=== PATIENT | male | born 1990 | race Two or more races ===

== ENCOUNTER 2016-12-16 00:10 | Inpatient (IN) | payer OTHER ==
[2016-12-16] VITALS (11 sets, daily range): BP systolic 107–138; BP diastolic 53–82
[2016-12-16] MEDS ORDERED: MORPHINE SULFATE 2 MG/ML DISP.SYRIN. IV PRN ×2 (02:15→08:30)
[2016-12-16] MEDS ORDERED: ONDANSETRON PF 4 MG/2 ML VIAL. IV PRN ×3 (02:15→09:30)
[2016-12-16] MEDS: IV NORMAL SALINE 1000ML BAG 1,000 ML IV SCH ×2 (02:30→12:15)
[2016-12-16] MEDS ORDERED: no home medications (03:29)
[2016-12-16] MEDS ORDERED: fentaNYL PF VIAL 100 MCG/2 ML VIAL IV PRN ×2 (04:45→08:30)
[2016-12-16] MEDS ORDERED: PROPOFOL 20 ML IV ONE (07:25)
[2016-12-16] MEDS ORDERED: SEVOFLURANE 31 TO 60 MINUTES. IH ONE (07:25)
[2016-12-16] MEDS ORDERED: LIDOCAINE 2% 100 MG/5 ML SYRINGE. ONE (07:25)
[2016-12-16] MEDS ORDERED: DEXAMETHASONE SOD PHOS 20 MG/5 ML VIAL. ONE (07:25)
[2016-12-16] MEDS ORDERED: ONDANSETRON PF 4 MG/2 ML VIAL. ONE (07:25)
[2016-12-16] MEDS ORDERED: KETOROLAC 60 MG/2 ML INJ FOR OR. ONE (07:25)
[2016-12-16] MEDS ORDERED: fentaNYL PF VIAL 100 MCG/2 ML VIAL ONE (07:26)
[2016-12-16] MEDS ORDERED: GLYCOPYRROLATE 1 MG/5 ML VIAL. ONE (07:26)
[2016-12-16] MEDS ORDERED: NEOSTIGMINE METHYLSULFATE 5 MG/5 ML SYRINGE. ONE (07:26)
[2016-12-16] MEDS ORDERED: SUCCINYLCHOLINE 200 MG/10 ML VIAL. ONE (07:27)
[2016-12-16] MEDS ORDERED: ROCURONIUM 50 MG/5 ML VIAL. ONE (07:30)
[2016-12-16] MEDS ORDERED: BUPIVAC MPF-EPI 0.5%-1:200000 30 ML VIAL. ONE (07:33)
--- NOTE | 2016-12-16 07:51 | PDOC ---
SURGICAL PROGRESS NOTE Subjective 26 yo M with appendicitis TO OR for lap appendectomy [id number] Vital Signs Vital Signs Date Time Temp Pulse Resp B/P Pulse Ox O2 Delivery O2 Flow Rate FiO2 12/16/16 05:36 Room Air 12/16/16 01:40 97.5 70 20 138/82 97 97.5 BEE BRAMBILA MD December 16, 2016 07:51
[2016-12-16] MEDS ORDERED: IV RINGERS,LACTATED 1000ML 1,000 ML IV SCH ×3 (08:00→09:27)
[2016-12-16] MEDS: PIPERACILLIN/TAZOBACTAM 3.375 GM in IV NORMAL SALINE 50ML 50 ML IV SCH ×2 (08:10→12:31)
[2016-12-16] MEDS ORDERED: HYDROmorphone 2 MG/ML VIAL IV PRN (08:30)
[2016-12-16] MEDS ORDERED: LIDOCAINE 1% 1 ML SYRINGE. ID PRN (08:30)
[2016-12-16] MEDS ORDERED: PROCHLORPERAZINE 10 MG/2 ML VIAL. IV PRN (08:30)
[2016-12-16] MEDS: fentaNYL PF VIAL 100 MCG/2 ML VIAL IV PRN ×2 (09:06→09:26)
[2016-12-16] MEDS ORDERED: HYDROCODONE/APAP 5/325MG TABLET. PO PRN (09:30)
[2016-12-16] MEDS ORDERED: KETOROLAC TROMETHAMINE 30 MG/ML INJ. IV PRN (09:30)
[2016-12-16] MEDS ORDERED: 0.9 % SODIUM CHLORIDE 10 ML DISP.SYRIN. IV PRN (09:30)
--- NOTE | 2016-12-16 09:33 | PDOC ---
BRIEF OPERATIVE NOTE Pre-Op Diagnosis Appendicitis Post-Op Diagnosis same Procedure Performed Laparoscopic appendectomy Surgeon Pili Anesthesia Type: General, Local Blood Loss 25 IV Fluid 200 Specimens Obtained appendix Findings inflammed appendix, no perforation Complications none Additional Remarks [id number] BEE BRAMBILA MD December 16, 2016 09:33
[2016-12-16] MEDS ORDERED: DOCUSATE SODIUM 100 MG CAPSULE. PO SCH (10:00)
--- NOTE | 2016-12-16 11:37 | CONS ---
DATE OF CONSULTATION: 12/16/2016 REFERRING PHYSICIANS: Dr. Nile Navarro, Dr. Michael Liao, Dr. Davey. CHIEF COMPLAINT: Right lower quadrant abdominal pain. DIAGNOSIS: Appendicitis. PLANNED PROCEDURE: Laparoscopic versus open appendectomy. HISTORY OF PRESENT ILLNESS: This is a pleasant 26-year-old male who presents with a 3-day history of abdominal pain localized in the right lower quadrant, gradually worsened over the past few days. Last night it caused him to present to the Emergency Room and had some associated nausea and developed emesis when he got to the Emergency Room. He was seen at [facility] ER and transferred to [place] for definitive care. He is seen in the preoperative area. He actually reports feeling much better this morning, decreased pain, although still somewhat present. He denies any previous episodes of anything like this. His stools have been normal. ALLERGIES: He has no known drug allergies. MEDICATIONS: None. PAST MEDICAL HISTORY: None. PAST SURGICAL HISTORY: None. SOCIAL HISTORY: Positive for half a pack of tobacco per day. He is encouraged on smoking cessation, drinks alcohol once weekly. REVIEW OF SYSTEMS: All systems reviewed and negative except for HPI. FAMILY HISTORY: Noncontributory. PHYSICAL EXAMINATION: GENERAL: Well-developed, well-nourished male in no obvious distress. VITAL SIGNS: He is afebrile. Vital signs within normal limits. HEENT: Normocephalic, atraumatic. Pupils equal. Anicteric sclerae. Extraocular motions intact. NECK: Supple. Trachea is midline. Oropharynx clear. LUNGS: Bilateral chest excursion. No chest wall tenderness to palpation. ABDOMEN: Soft, nondistended. There is mild tenderness to palpation on the right lower quadrant, some mild guarding. EXTREMITIES: No clubbing, cyanosis or edema. LABORATORY DATA: White blood cell count is 11.7. Chemistries were unremarkable. UA is unremarkable. CT scan of his abdomen and pelvis demonstrates acute appendicitis with a dilated fluid-filled appendix, but no evidence of abscess or free air. There is a lesion in the right lobe of the liver, 2.8 cm, which is felt to be a hemangioma. IMPRESSION AND RECOMMENDATIONS: This is a 26-year-old male with acute appendicitis. We will plan on laparoscopic versus open appendectomy and the risks, benefits and alternatives are discussed with the patient. Risks including but not limited to bleeding, infection, damage to surrounding structures, risk of anesthesia, risk of an open procedure. The patient appears to understand and his insightful questions were answered and he agrees to proceed. Regarding his liver hemangioma, this should not require any additional imaging or interventions, unfortunately will not be able to be visualized secondary to its location intraoperatively. Thank you for allowing participation in the care of this pleasant patient. BEE BRAMBILA MD DR: SACHA/belen JOB#: [id number] / [id number] NILE De Anda MD, SRINIVASA MD Warrick, Brad
--- NOTE | 2016-12-16 12:03 | PDOC1 ---
History and Physical Date of Admission Date of Admission 12/15/16 Identification/Chief Complaint Chief Complaint abd pain Problems: Source Source: Chart review, Patient History of Present Illness History of Present Illness 26yo M, was transferred from [facility] for abd pain. He has having RLQ abd pain for a few days, with N/V. appedicities was suppected and transferred here. pt got lap appendectomy on 5/3 am. seen post op, feels better. Past Medical History Past Medical History none Past Surgical History Past Surgical History: No pertinent history Family History Family History: No Significant Social History Smoke: <1 pack per day ALCOHOL: social Drugs: None Current Problem List Problem List Problems Medical Problems: (1) Appendicitis Status: Acute Current Medications Current Medications Current Medications Medications (Trade) Dose Ordered Sig/Jania Start Time Stop Time Status Last Admin Dose Admin Acetaminophen/ Hydrocodone Bitart (Lortab 5/325) 1 tab PRN Q4HRS PRN 12/16/16 09:30 Bupivacaine HCl/ Epinephrine Bitart (Sensorcain-Mpf Epi 0.5%-1:226970) 30 ml STK-MED ONCE 12/16/16 07:33 12/16/16 07:34 DC 12/16/16 08:14 5 ML Dexamethasone Sodium Phosphate (Decadron) 20 mg STK-MED ONCE 12/16/16 07:25 12/16/16 07:26 DC Docusate Sodium (Colace) 100 mg BID 12/16/16 10:00 Fentanyl Citrate (Fentanyl 2ml Vial) 50 mcg PRN Q5MIN PRN 12/16/16 08:30 12/17/16 08:29 12/16/16 09:26 50 MCG Fentanyl Citrate 25 mcg 25 mcg PRN Q2HR PRN 12/16/16 04:45 12/16/16 04:46 25 MCG Glycopyrrolate (Robinul) 1 mg STK-MED ONCE 12/16/16 07:26 12/16/16 07:27 DC Hydromorphone HCl (Dilaudid) 0.5 mg PRN Q10MIN PRN 12/16/16 08:30 12/17/16 08:29 Ketorolac Tromethamine (Toradol For Or Only) 60 mg STK-MED ONCE 12/16/16 07:25 12/16/16 07:26 DC Ketorolac Tromethamine (Toradol) 30 mg PRN Q6HRS PRN 12/16/16 09:30 12/21/16 09:29 Lidocaine HCl 2 ml PRN 1X PRN 12/16/16 08:30 12/17/16 08:29 Lidocaine HCl (Lidocaine HCl 2% Abboject) 100 mg STK-MED ONCE 12/16/16 07:25 12/16/16 07:26 DC Morphine Sulfate 1 mg PRN Q10MIN PRN 12/16/16 08:30 12/17/16 08:29 Morphine Sulfate 2 mg 2 mg PRN Q2HR PRN 12/16/16 02:15 12/16/16 04:37 DC 12/16/16 03:19 2 MG Neostigmine Methylsulfate 5 mg STK-MED ONCE 12/16/16 07:26 12/16/16 07:27 DC Ondansetron HCl (Zofran) 4 mg PRN Q6HRS PRN 12/16/16 09:30 Ondansetron HCl 4 mg 4 mg STK-MED ONCE 12/16/16 07:25 12/16/16 07:26 DC Piperacillin Sod/ Tazobactam Sod/ Sodium Chloride (Zosyn/Iv Sodium Chloride 0.9% 50ml) 50 ml @ 100 mls/hr Q6HRS 12/16/16 07:00 12/16/16 08:10 100 MLS/HR Prochlorperazine Edisylate (Compazine) 5 mg PACU PRN PRN 12/16/16 08:30 12/17/16 08:29 Propofol (Diprivan) 20 ml @ As Directed STK-MED ONCE 12/16/16 07:25 12/16/16 07:26 DC Rocuronium [place] (Zemuron) 50 mg STK-MED ONCE 12/16/16 07:30 12/16/16 07:31 DC Sevoflurane (Ultane) 30 ml STK-MED ONCE 12/16/16 07:25 12/16/16 07:26 DC Sodium Chloride (Iv Sodium Chloride 0.9% 1000ml Bag) 1,000 ml @ 100 mls/hr Q10H 12/16/16 02:15 12/16/16 02:30 100 MLS/HR Sodium Chloride (Normal Saline Flush) 3 ml QSHIFT PRN 12/16/16 09:30 Succinylcholine Chloride (Anectine) 200 mg STK-MED ONCE 12/16/16 07:27 12/16/16 07:28 DC Allergies Allergies Allergies Coded Allergies Type Severity Reaction Last Updated Verified No Known Drug Allergies 12/16/16 No ROS Review of System CONSTITUTIONAL: No fever or chills EYES: No recent changes SKIN: No rash or itching CARDIOVASCULAR: No chest pain, syncope, palpitations, or edema RESPIRATORY: No SOB or cough GASTROINTESTINAL: No nausea, vomiting or abdominal pain NEUROLOGICAL: No headaches or weakness ENDOCRINE: No cold or heat intolerance GENITOURINARY: No urgency or frequency of urination MUSCULOSKELETAL: No back pain or joint pain LYMPHATICS: No enlarged lymph nodes PSYCHIATRIC: No anxiety or depression Physical Exam Physical Exam GEN.: No apparent distress. Alert and oriented. HEENT: Head is normocephalic, atraumatic NECK: Supple. LUNGS: Clear to auscultation. HEART: RRR, S1, S2 present. Peripheral pulses intact ABDOMEN: Soft, Positive bowel sounds. clean sx wound, mild tenderness EXTREMITIES: Without any cyanosis. NEUROLOGIC: Normal speech, normal tone PSYCHIATRIC: Normal affect, normal mood. SKIN: No ulcerations Vitals Vitals Vital Signs Date Time Temp Pulse Resp B/P Pulse Ox O2 Delivery O2 Flow Rate FiO2 12/16/16 10:45 97.9 66 16 107/63 Room Air 97.9 12/16/16 10:03 98 12/16/16 09:06 10.0 VTE Prophylaxis Ordered VTE Prophylaxis Devices: Yes VTE Pharmacological Prophylaxi: No Assessment/Plan Assessment/Plan 1. RLQ pain, with appendicites post lap appendectomy on 12/16 2. tobaccoism plan: post op care, fu with sx ivf advance diet if ok with sx pain control labs tmr MAYA WHITNEY MD December 16, 2016 12:02
[2016-12-16] MEDS ORDERED: ACETAMINOPHEN 325 MG TABLET. PO PRN (12:15)
--- NOTE | 2016-12-16 12:15 | OP ---
DATE OF SURGERY: 12/16/2016 REFERRING PHYSICIAN: Liang Davey MD. PREOPERATIVE DIAGNOSIS: Appendicitis. POSTOPERATIVE DIAGNOSIS: Appendicitis. PROCEDURE: Laparoscopic appendectomy. SURGEON: Guzman Brambila MD. ESTIMATED BLOOD LOSS: 25 mL. FLUIDS: 200 mL. COMPLICATIONS: None. FINDINGS: Inflamed thickened appendix. No evidence of perforation. INDICATIONS: This 26-year-old male presents with complaints of right lower quadrant abdominal pain. Imaging was concerning for appendicitis. Subsequently, it was felt patient best be served by laparoscopic versus open appendectomy. The patient was informed of the risks, benefits, alternatives of procedure, risks including but not limited to bleeding, infection, damage to surrounding structures, risk of anesthesia, risk of an open procedure. The patient appears to understand and his insightful questions were answered and he agrees to proceed. DESCRIPTION OF PROCEDURE: After obtaining informed consent, the patient was taken to the operating room, induced under general endotracheal anesthetic, the patient was prepped and draped in usual fashion in the anterior abdominal wall. A 0.5% Marcaine with epinephrine was injected in left lower quadrant abdominal wall. Incision was made using a 15 blade scalpel. A 5 mm nonbladed trocar was introduced in the abdominal cavity under direct vision of laparoscope. Pneumoperitoneum was established, Additional 12 port was placed in the supraumbilical area and another 5 mm port was placed in the suprapubic area, all under direct vision of the laparoscope. The abdominal cavity was explored. The liver was normal in appearance. The visualized portion of viscera is normal in appearance. There was no evidence of trocar injury. There was no evidence of other pathology. The appendix was identified coming off the confluence of tinea at the level of the cecum. It was noted to be inflamed and thickened. No evidence of perforation. Subsequently, a defect was created in the mesoappendix. A general load SRIKANTH stapler was taken across the base of the appendix and a vascular load was taken across the mesoappendix. Appendix was placed in an EndoCatch bag and brought out through the epigastric port and passed off the field and sent to pathology for evaluation. The abdominal cavity was copiously irrigated with normal saline solution. There was no evidence of bleeding or other pathology at the time of closure. All ports were removed under direct vision of laparoscope. There was no evidence port site bleeding. Fascial defect in the supraumbilical area was reapproximated using a PMI device using an Endo Close. All skin incisions were approximated with multiple interrupted 4-0 Monocryl in subcuticular fashion. Sterile dressing was placed over all wounds. The patient tolerated procedure well and was discharged to recovery room in stable condition. All counts were correct. There were no immediate complications. GUZMAN BRAMBILA MD DR: SACHA/belen JOB#: [id number] / [id number] BRISA
[2016-12-16] MEDS ORDERED: HYDR-2666 PO (15:50)
[2016-12-16] MEDS ORDERED: DOCU-27 PO (15:50)
--- NOTE | 2016-12-16 15:51 | PDOC3 ---
Discharge Summary [facility] Date of Admission: December 15, 2016 Discharge Date: December 16, 2016 Admitting Diagnosis 1. RLQ pain, with appendicites post lap appendectomy on 12/16 2. tobaccoism Problems: Final Diagnosis CONSULTS sx Procedures lap natanael Brief Hospital Course 26yo M, was transferred from [facility] for abd pain. He has having RLQ abd pain for a few days, with N/V. appedicities was suppected and transferred here. pt got lap appendectomy on 12/16 am. seen post op, feels better. HE isnot sure if he has flatus, but tolerate meal well. he requires to dc now, sx is ok to dc. dc home, dc time 35min. Patient History: Patient reports no known family medical history. Problems: Disposition home CONDITION AT DISCHARGE: Improved Diet regular Scheduled Docusate Sodium (Colace) 100 MG PO BID Scheduled PRN Hydrocodone Bit/Acetaminophen (Hydrocodone-Apap 5-325 ) 1 TAB PO PRN Q4HRS PRN PRN MILD PAIN Miscellaneous Medications ([no home medications]) (Reported) Follow Up sx in 2 weeks MAYA WHITNEY MD December 16, 2016 15:51
--- NOTE | 2016-12-18 17:20 | PATHOLOGY ---
PATHOLOGY REPORT * * * * * * * * FINAL DIAGNOSIS: Appendix, laparoscopic appendectomy: - Acute appendicitis. COMMENT: There is no evidence of rupture. REPORT ELECTRONICALLY SIGNED BY: Duncan Ponce M.D. DATE/TIME: 12/18/2016 17:20 * * * * * * * * GROSS PATHOLOGY: Received in formalin labeled "Kofi Vidales, appendix," is an appendix measuring 9.0 cm in length and 1.0 cm in diameter with a moderate amount of attached mesoappendix. The serosal surface is wrinkled, shiny and pale tangray. Sectioning reveals a patent lumen free of fecaliths and mass lesions. [employer] sections are submitted in cassette A1. (SNA; 12/17/2016) INITIAL CPT CODE(S): A; 24927 Professional services performed by [facility] at [address] [address] Technical services performed by [facility] at [address] [place] [address], [facility] [address] [place] [address]. [facility], [address] [place] [address] phone: [phone] fax: [phone] SPECIMEN(S) RECEIVED: A.Appendix CLINICAL HISTORY: Acute appendicitis PATIENT: KOFI VIDALES /AGE: 411/29/1990 (Age: 26) PATIENT #: [id number] ALT CASE #: SPECIMEN COLLECTION DATE: 12/16/2016 SPECIMEN RECEIVED DATE: 12/16/2016 [facility] - [id number] [place] [address] - PHONE: [phone] * * * END OF REPORT * * *
== END 2016-12-16 17:00 | disposition home or self-care (01) | DRG 343 ==
LOC: 4 NORTH 01:43
PROVIDERS: ADMIT Internal Medicine; ATTEND Internal Medicine
PROC: 0DTJ4ZZ Resection of Appendix, Percutaneous Endoscopic Approach (ICD-10-PCS; principal; 2016-12-16 08:00)
DX: K37 Unspecified appendicitis (principal); F17.210 Nicotine dependence, cigarettes, uncomplicated
CPT/HCPCS: C1782; J0330; J1100; J1885; J2270; J2405; J2543; J2704; J2710; J3010; J3490; J7030; J7120